=== PATIENT | female | born 1990 | race American Indian/Alaskan Native ===

== ENCOUNTER → 2018-07-27 15:37 | Outpatient (CLI) | payer MEDICAID, OTHER, SELFPAY ==
[2018-07-27 16:21] LABS: Add Manual Diff / Slide Review NO; Basophils Percent Auto 0.3 % (0-2); Eosinophils Percent Auto 1.5 % (2-4); Hematocrit 38.4 % (36-46); Lymphocytes Percent Auto 19.9 % (25-40); Mean Corpuscular HGB Conc 33.9 % (30-36); Mean Corpuscular Hemoglobin 29.4 PG (26-34); Mean Corpuscular Volume 86.8 fL (80-100); Monocytes Percent Auto 4.7 % (3-14); Neutrophils Absolute Auto 6200 /uL (3000-5900); Neutrophils Percent Auto 73.6 % (50-75); Platelet Count 322 X10^3/uL (150-400); Red Blood Cell Count 4.42 X10^6/uL (4.0-5.2); Red Cell Distribution Width 15.4 % (11.6-14.8); White Blood Cell Count 8.4 X10^3/uL (4.5-11.0)
[2018-07-27 17:09] LABS: Glucose 112 mg/dL (70-100)
[2018-07-27 17:30] LABS: Appearance Urine UA SL CLOUDY; Bilirubin Urine UA NEGATIVE (NEGATIVE); Color Urine UA YELLOW; Glucose Urine UA NEGATIVE (Normal); Ketones Urine UA NEGATIVE (NEGATIVE); Leukocyte Esterase Urine UA NEGATIVE (NEGATIVE); Nitrite Urine UA Negative (Negative); Occult Blood Urine UA NEGATIVE (Negative); Protein Urine UA NEGATIVE (Negative); Urobilinogen Urine UA 0.2 E.U./dL (0.2)
[2018-07-27 17:45] LABS: Hepatitis B Surface Antigen NEGATIVE s/c (NEGATIVE); Rubella Antibody IgG 2.6 IU/mL (>15)
[2018-07-27 18:01] LABS: HIV 1 and 2 Antibody NEGATIVE (NEGATIVE); Hep C Virus Ab w/Reflex Quant NEGATIVE s/c (NEGATIVE)
[2018-07-27 18:26] LABS: Hemoglobin A1C% w Est Avg Glu 4.8 % (4.0-6.0)
[2018-07-29 14:06] LABS: HSV 2 IGG AB < 0.90 index (< 0.90)
[2018-07-30 12:26] LABS: Rapid Plasma Reagin NON-REACTIVE
== END ==
PROVIDERS: Family Provider Family Medicine; PCP Family Medicine
DX: Z34.81 Encounter for supervision of other normal pregnancy, first trimester (principal); Z3A.01 Less than 8 weeks gestation of pregnancy
CPT/HCPCS: 36415; 80055; 81003; 82947; 83036; 86695; 86696; 86703; 86787; 86803; 86850; 86900; 86901; 87077; 87086

== ENCOUNTER → 2018-08-04 17:00 | Outpatient (CLI) | payer MEDICAID, OTHER, SELFPAY ==
[2018-08-10 13:10] LABS: Sequential Screen 1st Trimeste FINAL RESULT PENDING
== END ==
DX: Z34.81 Encounter for supervision of other normal pregnancy, first trimester (principal)
CPT/HCPCS: 36415; 84163; 84702

== ENCOUNTER → 2018-08-19 13:40 | Outpatient (CLI) | payer MEDICAID, OTHER, SELFPAY ==
[2018-08-24 11:24] LABS: Sequential Screen 2nd Trimeste SCREEN NEGATIVE
== END ==
DX: Z34.92 Encounter for supervision of normal pregnancy, unspecified, second trimester (principal)
CPT/HCPCS: 36415; 86336

== ENCOUNTER → 2018-12-02 09:43 | Outpatient (CLI) | payer MEDICAID, OTHER, SELFPAY ==
[2018-12-02 11:24] LABS: Hematocrit 37.1 % (36-46); Hemoglobin 12.1 g/dL (12.0-16.0)
[2018-12-02 12:40] LABS: GTT (PREG) 1 Hour PP 50gm Dose 108 mg/dL (76-139)
== END ==
PROVIDERS: Family Provider Family Medicine; PCP Family Medicine
DX: Z34.82 Encounter for supervision of other normal pregnancy, second trimester (principal)
CPT/HCPCS: 36415; 82950; 85014; 85018

== ENCOUNTER → 2019-01-04 12:15 | Outpatient (CLI) | payer MEDICAID, OTHER, SELFPAY ==
[2019-01-05 12:34] LABS: Strep Grp B PCR NEG for Grp B Strep
== END ==
PROVIDERS: Family Provider Family Medicine; PCP Family Medicine
DX: Z3A.35 35 weeks gestation of pregnancy (principal)
CPT/HCPCS: 87653

== ENCOUNTER 2019-01-11 09:09 | Inpatient (IN) | payer MEDICAID, OTHER, SELFPAY ==
[2019-01-11 09:24] LABS: Bacteria Urine None Seen
[2019-01-11 09:26] LABS: Appearance Urine UA SL CLOUDY; Bilirubin Urine UA NEGATIVE (NEGATIVE); Color Urine UA YELLOW; Glucose Urine UA NEGATIVE (Negative); Ketones Urine UA NEGATIVE (NEGATIVE); Leukocyte Esterase Urine UA TRACE (NEGATIVE); Nitrite Urine UA NEGATIVE (Negative); Occult Blood Urine UA 3+ (Negative); Protein Urine UA NEGATIVE (Negative); Specific Gravity Urine UA 1.015 (1.000-1.035); Urobilinogen Urine UA 0.2 E.U./dL (0.2); pH Urine UA 7.5 (4.5-8.0)
[2019-01-11 09:33] LABS: Culture Indicated Urine Cult Not Indicated; RBC Urine 10-30/HPF (0-5/HPF); Squamous Epithelial Cell Urine 5-10 /HPF; WBC Urine 1-5/HPF (0-5/HPF)
[2019-01-11] MEDS: LACTATED RINGERS 1,000 ML 125 ML IV ×2 (10:00→10:59)
--- NOTE | 2019-01-11 10:02 | PM.OBHP.1 ---
OB HPI Date/Time Date of admission: 01/11/19 Date Patient Seen: 01/11/19 Time Patient Seen: 10:02 History of Present Condition Chief complaint: Active labor : 4 Para: 3 Estimated Date of Delivery: 02/08/19 Estimated Gestational Age (weeks): 36 Narrative: Leigh Dinh is a 28 year old female four para three. Last baby had gastroschisis and delivered at 28 weeks. In the pregnancies before that patient delivered at 38 and 37 weeks. Patient did not receive 17 hydroxy progesterone during this . She had an early 1st exam at 12 weeks which gave her an QUENTIN of 02/08/2019. History of Present care: good care Dating criteria: LMP confirmed by 1st trimester US Ultrasounds: normal 1st trimester US and normal mid trimester US Obstetrical complications: other (History of drug use) Medical complications: none Preadmission Labs Blood type: O (+) positive -: Antibody screen: negative, Cystic fibrosis screen: unknown, GBS status: negative, HBsAG: negative, HIV: negative, HSV 1: negative, HSV 2: positive and RPR/VDLR: negative -: Chlamydia screen: detected (Negative) and Gonorrhea screen: detected (Negative) -: Rubella: immune and Varicella: immune HCT: 38 HCAB: negative PAP: Normal 1 hr GTT: 105 Narrative: Patient is a a 28-year-old single female four para three. She is at 36 weeks and presents in active labor. This patient had deliveries at 37 and 38 weeks. She then had a baby with gastroschisis which was delivered at 28 weeks at [facility] and that baby . Patient is had an uneventful she has a history of drug use but was screened and was negative. Her laboratory studies were within normal limits. Her we went from 178 lb to 220 lb during the for 42 lb weight gain. Her her urines remained negative for glucose and protein. She had adequate fundal growth. Her GBS done was negative. Glucose screen was 105. Patient now presents in active labor and is 4-5 cm dilated Evaluation Evaluation Laboratory results: Laboratory Tests 01/11/19 09:15 Urine Color Yellow Urine Appearance Sl cloudy Urine pH 7.5 Ur Specific [place] 1.015 Urine Protein Negative Urine Glucose (UA) Negative Urine Ketones Negative Urine Occult Blood 3+ H Urine Nitrate Negative Urine Bilirubin Negative Urine Urobilinogen 0.2 Ur Leukocyte Esterase Trace H Urine RBC 10-30/hpf H Urine WBC 1-5/hpf Ur Squamous Epith Cells 5-10 /hpf H Urine Bacteria None seen Ur Culture Indicated? Cult not indicated PFSH Medical History Fracture of left side of mandible (Resolved 2010) Surgical History History of mandibular surgery (Resolved 2010) Meds Home Medications Medication Instructions Recorded Confirmed Type cyclobenzaprine 10 mg PO TIDP PRN #20 tab 12/14/16 Rx norethindrone ac-eth estradiol 1 tab PO Q DAY #3 pac 03/17/17 Rx [Loestrin 1.5/30 (21)] cyclobenzaprine 10 mg PO Q8HP PRN #20 tab 03/19/17 Rx Allergies Allergy/AdvReac Type Severity Reaction Status Date / Time No Known Drug Allergies Allergy Verified 01/11/19 10:02 Exam Const General: cooperative and healthy appearing [facility] Head: normal to inspection Ears: hearing grossly normal bilaterally Nose: external nose normal Face and sinus: normal facial exam Mouth: oral mucosae normal, lip normal, tongue normal and moist mucous membranes Teeth and gingiva: abnormal tooth or associated gingiva, caries, poor dentition and other (Patient is essentially edentulous) Throat: posterior oropharynx normal Eyes General: appearance normal, both eyes and all related structures Neck Neck: normal visual inspection and full ROM Chest Chest: normal inspection of the chest and normal palpation of entire chest wall Breast inspection: normal inspection of the breasts and normal inspection of the axillae Breast Palpation: normal palpation of the breasts and normal palpation of the axillae Resp Effort & Inspection: normal respiratory effort Auscultation: clear to auscultation bilaterally Cardio Palpation: normal PMI Rate: regular rate Rhythm: regular rhythm Heart Sounds: S1 normal and S2 normal GI Inspection: normal to inspection Palpation: soft and no hepatosplenomegaly Percussion: normal to percussion Auscultation: normal bowel sounds External Female Exam: external appearance normal and normal appearance of the urethra Manual OB Exam: dilated 4, effaced fully and station -1 Uterus Location (Fundal Height): 36 Presentation: vertex Estimated Weight (lbs): 6 Back/Spine/Pelvis Thoracic/Lumbar Spine: thoracic and lumbar spine normal to inspection Skin General: no rashes or lesions noted Neuro General: alert, oriented x3, tone normal and moves all extremities Cognition: normal cognition Speech: speech normal Gait: normal gait Motor: muscle tone normal throughout Sensory Exam: no sensory deficits noted Extrem General: normal to inspection and normal exam except as noted Psych Appearance: grossly normal and well kempt Mental Status: mental status grossly normal Speech and Movement: speech and movement normal Objective Labs Labs: Laboratory Results - last 24 hr 01/11/19 09:15 Urine Color Yellow Urine Appearance Sl cloudy Urine pH 7.5 Ur Specific [place] 1.015 Urine Protein Negative Urine Glucose (UA) Negative Urine Ketones Negative Urine Occult Blood 3+ H Urine Nitrate Negative Urine Bilirubin Negative Urine Urobilinogen 0.2 Ur Leukocyte Esterase Trace H Urine RBC 10-30/hpf H Urine WBC 1-5/hpf Ur Squamous Epith Cells 5-10 /hpf H Urine Bacteria None seen Ur Culture Indicated? Cult not indicated Assessment and Plan (1) 36 weeks gestation of : Onset Date: ~01/11/19 Current visit: Yes Status: Acute Delivery Epidural anesthesia (2) Multigravida in first trimester: Current visit: Yes Status: Acute (3) Labor abnormal: Current visit: Yes Status: Acute
[2019-01-11 10:16] LABS: Add Manual Diff / Slide Review NO; Basophils Absolute Auto 0 /uL (0-100); Basophils Percent Auto 0.4 % (0-2); Eosinophils Absolute Auto 100 /uL (0-450); Eosinophils Percent Auto 1.1 % (2-4); Hematocrit 39.9 % (36-46); Hemoglobin 13.6 g/dL (12.0-16.0); Lymphocytes Absolute Auto 1700 /uL (1100-4500); Mean Corpuscular Hemoglobin 29.7 PG (26-34); Mean Corpuscular Volume 87.4 fL (80-100); Monocytes Absolute Auto 600 /uL (0-900); Monocytes Percent Auto 5.9 % (3-14); Neutrophils Absolute Auto 7200 /uL (1500-7000); Neutrophils Percent Auto 74.6 % (50-75); Platelet Count 271 X10^3/uL (150-400); Red Blood Cell Count 4.57 X10^6/uL (4.0-5.2); Red Cell Distribution Width 14.2 % (11.6-14.8); White Blood Cell Count 9.7 X10^3/uL (4.5-11.0)
[2019-01-11 10:36] VITALS: BP 119/75
--- NOTE | 2019-01-11 12:01 | PM.OBPRVD ---
Events: Labor < 37 Weeks Delivery date: 01/11/19 Intrapartal events: None Delivery monitor: external FHT and external uterine Route of delivery: L&D Laceration Description: None Estimated blood loss (mL): 200 Complications: None Narrative: Patient is a 28-year-old female four para three who presented in active labor at 36 weeks. Patient had a rapid labor and spontaneous vaginal delivery with one push of a live-born male with scores of eight at 1 min nine at 5 min in good condition. The placenta delivered spontaneously. Cord had three vessels. There are no cervical vaginal or perineal lacerations. Estimated blood loss was 200 cc. Plan for aftercare: Routine aftercare
[2019-01-11 12:24] LABS: Urine Amphetamines Negative (Negative); Urine Barbiturates Negative (Negative); Urine Benzodiazepines Negative (Negative); Urine Cocaine Negative (Negative); Urine MDMA Negative (Negative); Urine Methadone Negative (Negative); Urine Methamphetamines Negative (Negative); Urine Morphine/Opi cutoff 2000 Positive (Negative); Urine Oxycodone Negative (Negative); Urine Phencyclidine Negative (Negative); Urine Tetrahydrocannabinol Negative (Negative); Urine Tricyclic Antidepressant Negative (Negative)
[2019-01-11] MEDS: IBUPROFEN 600 MG TABLET PO ×2 (14:06→20:26)
[2019-01-11 20:26] VITALS: TEMP 36.4
[2019-01-11 23:49] VITALS: BP 119/75; BP 136/91; PULSE 91; RESP 18; TEMP 36.4; TEMP 37.1
[2019-01-12 00:10] VITALS: TEMP 37.1
[2019-01-12] MEDS: OXYCODONE/ACETAMINOPHEN 5/325 TABLET 2 TAB PO (00:10)
== END 2019-01-12 00:19 | disposition home or self-care (01) | DRG 807 ==
DX: O60.14X0 Preterm labor third trimester with preterm delivery third trimester, not applicable or unspecified (principal); Z37.0 Single live birth; Z3A.36 36 weeks gestation of pregnancy
CPT/HCPCS: 01967; 59050; 59409; 80305; 81001; 85025; 86850; 86900; 86901; G0379

== ENCOUNTER 2019-02-26 10:09 | Day surgery (SDC) | payer MEDICAID, OTHER, SELFPAY ==
[2019-02-17 12:14] VITALS: BMI 37.2
[2019-02-26] VITALS (12 sets, daily range): BP systolic 108–136; BP diastolic 59–86; PULSE 56–94; RESP 12–20; TEMP 36–36.7; O2SAT 65–98; BMI 38.1
--- NOTE | 2019-02-26 10:35 | PM.PREOP ---
Pre-operative Note Interval Note History & Physical reviewed/Exam performed by Physician: Yes Changes to H&P: No H&P completed within 30 days and has changed as indicated here:: yws ASA Class (for procedural sedation): II
[2019-02-26] MEDS: LACTATED RINGERS 1,000 ML 42 ML IV ×2 (11:04→12:17)
[2019-02-26] MEDS: CEFAZOLIN 2 GM/100 ML FROZ.PIGGY IV (11:17)
--- NOTE | 2019-02-26 11:37 | SUR.OPER ---
Lithotomy on padded OR bed, head on pillow, arms secured on padded arm boards at <90 degrees abduction. Legs secured in padded yellow fins stirrups. Lithotomy on padded OR bed, head on pillow, arms secured on padded arm boards at <90 degrees abduction. Legs secured in padded yellow fins stirrups.
[2019-02-26] MEDS: BUPIVACAINE 0.5% W/ EPI (PF) VIAL 30 ML INJ (11:45)
--- NOTE | 2019-02-26 11:54 | PM.GYNOP.1 ---
Operative Date/Time/Diagnoses Date of procedure: 02/26/19 Time of procedure: 11:54 Post-op diagnosis: same Procedure: Procedures Operation Date: 02/26/19 11:15 Actual Procedures Side Surgeon p Laparoscopic Tubal Occlusion Bilateral Santiago Zuniga MD Indications: Multiparity desires sterilization Surgeon: Santiago Zuniga Anesthesia Type: General Operative Notes Closure Type: primary Specimen(s): none Estimated blood loss (mL): 25 Blood products transfused: none Procedure in detail: The patient was placed supine upon the operating table and anesthetized. She was then placed in the dorsal lithotomy position and examined under anesthesia. Under anesthesia she is felt to have an anterior uterus and no adnexal masses. the patient was then draped and prepared in the usual fashion. speculum was set in place. Uterine cervix was grasped with a toothed tenaculum and sounded to 7.5 cm. Uterine cervix was dilated to Hegar 8. The Zumi insufflation cannula was then placed in the bulb expanded. The tenaculum and speculum were then removed. gloves were changed and attention turned to the abdomen. approximately 10 cc of 0.5% Marcaine in 1 to 118887 epinephrine was injected into the umbilicus. A sharp knife incision was made. Veress needle was placed. approximately 6 L of carbon dioxide gas were insufflated to a final resting pressure of 15 cm water. The Veress needle was withdrawn and the large 12 mm trocar set in place. The laparoscopic was placed there through in the pelvic contents visualized. Patient had normal uterus tubes and ovaries. The clip her chin forcep was used and the left tube was grasped with the isthmic ampullary junction and fulgurated in three places with good through and through burn to infinite impedance. There was minimal misosalpngeal burn. Similar procedure was performed on the right-hand side. No bleeding points were seen. All carbon dioxide gas was allowed to exit the abdomen. laparoscopic trocars were withdrawn. Incision was closed with a deep 0 Vicryl suture thin with a running horizontal mattress three 0 Vicryl suture. the skin was approximated with Steri-Strips. The Zumi insufficient cannula was removed. the patient was taken to the recovery room in satisfactory condition. Post-operative Condition: stable Disposition: PACU Plan for aftercare: Home
--- NOTE | 2019-02-26 12:00 | PM.DS.1 ---
History of Present Illness Date Patient Seen: 02/26/19 Time Patient Seen: 12:00 Chief complaint: [id number] Narrative: Patient is a 28-year-old female who desires sterilization. Laparoscopic tubal full duration was performed without incident Discharge Providers Discharge Date: 02/26/19 Discharge provider: Santiago Zuniga MD Summary Discharge Diagnosis: Multiparity desires sterilization Status post laparoscopic tubal full duration Hospital Course: The patient underwent laparoscopic tubal full duration without incident Status at Discharge Cognitive/behavioral status at discharge: oriented Functional status at discharge: independent ambulation Overall status at discharge: patient is back to baseline Time Spent with Patient Less than 30 minutes Exam Vital Signs (past 8 hours): - 02/26/19 10:50 Temperature 97.7 F Pulse Rate 94 H Respiratory Rate 20 Blood Pressure 112/76 Pulse Oximetry 94 Oxygen Delivery Method Room Air Narrative Exam Narrative: Incision looks fine Minimal vaginal bleeding Discharge Plan Discharge Plan Patient Disposition: Home Discharge Med Rec/Prescriptions Prescriptions: New oxycodone-acetaminophen [Percocet] 5-325 mg tablet 1 tab PO Q4-6H PRN (Reason: pain) Qty: 10 RF: 0 Discharge Orders: Discharge (Now); Ordered 02/26/19 Ordered By: Santiago Zuniga Provider Discharge Instructions Diet: Diet as Tolerated Activity: Up ad trevin Skin/Wound/Dressing Care Report to your healthcare provider any signs of infection, such as:: chills, fever, increased pain, unusual drainage and unusual redness Visit Report/Discharge Packet Instructions: DI for Tubal Ligation, DI for Laparoscopy Stand Alone Forms: Surgery Discharge Discharge Data Attending Provider: Santiago Zuniga
[2019-02-26] MEDS: fentaNYL 100 MCG/2 ML INJ 50 MCG IV ×4 (12:14→12:59)
--- NOTE | 2019-02-26 13:08 | SUR.PHASEI ---
Received report in PACU. Will continue with post op care.
[2019-02-26] MEDS: OXYCODONE/ACETAMINOPHEN 5/325 TABLET 1 TAB PO (13:43)
--- NOTE | 2019-02-26 13:52 | SUR.PHASEII ---
1343 Pt medicated with percocet, beti pad with small amount bloody drainage. Prescription given to aunt to fill.
--- NOTE | 2019-02-26 15:04 | SUR.PHASEII ---
Sister returned for discharge. Vss. Assisted to BR to void. beti pad with small amount of bloody drainage on beti pad. Pt stated she was on her menses. Pt left unit when ready and left in stable condition.
== END 2019-02-26 14:45 | disposition home or self-care (01) ==
PROC: (CPT 58671; principal; 2019-02-26 11:15)
DX: Z30.2 Encounter for sterilization (principal)
CPT/HCPCS: 58670; J0690; J1100; J1885; J2250; J2405; J2704; J3010

== ENCOUNTER → 2019-04-29 10:10 | Outpatient (CLI) | payer MEDICAID, OTHER, SELFPAY ==
--- NOTE | 2019-04-29 | DI.RAD.S_ITS ---
PROCEDURE: XR FOOT LT MIN 3V INDICATIONS: LEFT FOOT PAIN TECHNIQUE: 3 views of the foot were acquired. COMPARISON: [facility], , FOOT 3V LEFT, 07/28/2015, 11:59. [facility], , FOOT 3V LEFT, 09/20/2010, 10:55. FINDINGS: Bones: No fractures or dislocations. No suspicious bony lesions. Soft tissues: No tibiotalar joint effusion. Achilles tendon appears normal. IMPRESSION: Normal for age, source of current foot pain symptoms is not seen. Dictated by: Mumtaz Carrasco M.D. on 04/29/2019 at 11:32 Approved by: Mumtaz Carrasco M.D. on 04/29/2019 at 11:41
== END ==
PROVIDERS: Visit Provider Family Medicine
DX: M79.672 Pain in left foot (principal)
CPT/HCPCS: 73630